=== PATIENT | male | born 1990 | race Caucasian/White ===

== ENCOUNTER 2022-04-02 19:43 | Emergency (ER) | payer OTHER ==
[2022-04-02 21:46] LABS: BASOPHIL 0.3 % (0-2); EOSINOPHIL 0.6 % (0-5); HCT 47.8 % (42.0-52.0); HGB 16.7 g/dl (13.2-18.0); MCH 32.4 pg (25.0-31.0); MCHC 34.9 g/dL (32.0-36.0); MCV 92.6 fL (78.0-100.0); MPV 9.6 fL (6.0-9.5); NEUTROPHIL 62.9 % (41-80); NRBC 0; PLT 215 K/uL (150-400); RBC 5.16 M/uL (4.70-6.00); RDW 11.7 % (11.5-14.0); WBC 8.8 K/uL (4.0-10.5)
[2022-04-02 21:53] LABS: BILIRUBIN NEGATIVE (NEGATIVE); BLOOD NEGATIVE Ery/uL (NEGATIVE); CLARITY CLEAR (CLEAR); COLOR YELLOW (YELLOW); GLUCOSE (U) NORMAL (NORMAL); LEUKOCYTES NEGATIVE Leu/uL (NEGATIVE); NITRITE NEGATIVE (NEGATIVE); PROTEIN NEGATIVE (NEGATIVE); UROBILINOGEN 0.2 mg/dL (0.2-1.0)
[2022-04-02 21:56] LABS: AMPHETAMINES POSITIVE (NEGATIVE); BARBITURATES NEGATIVE (NEGATIVE); ECSTASY (MDMA) NEGATIVE (NEGATIVE); MARIJUANA (THC) POSITIVE (NEGATIVE); METHADONE NEGATIVE (NEGATIVE); OPIATES NEGATIVE (NEGATIVE); OXYCODONE NEGATIVE (NEGATIVE)
[2022-04-02 22:06] LABS: BUN 11 mg/dL (7-18); BUN/CREAT RATIO (CALC) 13.9 RATIO; CHLORIDE 100 mmol/L (98-107); CO2 (BICARBONATE) 29 mmol/L (21-32); CREATININE 0.79 mg/dL (0.67-1.17); GLUCOSE 82 mg/dL (74-106); POTASSIUM 3.5 mmol/L (3.5-5.1)
== END 2022-04-02 23:15 | disposition home or self-care (01) ==
LOC: FER 19:43
PROVIDERS: Nurse Practitioner Family
DX: R07.89 Other chest pain (principal)
CPT/HCPCS: 36415; 71045; 80048; 80305; 81003; 84484; 85025; 93005